=== PATIENT | male | born 1990 | race African-American/Black ===

== ENCOUNTER 2020-11-14 22:28 | Emergency (ER) | payer MEDICAID, OTHER ==
[~2020-11-14] VITALS: Ht 185.4 cm; Wt 100.0 kg
[2020-11-14 22:41] VITALS: BP 177/60
[2020-11-15] MEDS ORDERED: MIDAZOLAM HCL 5 MG/ML VIAL IM ONE ×2 (00:15)
[2020-11-15 14:47] LABS: GLUCOSE,POINT OF CARE 86 MG/DL (70-110)
== END 2020-11-15 02:31 | disposition home or self-care (01) ==
LOC: EMS 22:28 → EDUNIT# 22:28 → EMS 11-15 02:31
DX: R45.1 Restlessness and agitation (principal); F16.929 Hallucinogen use, unspecified with intoxication, unspecified
CPT/HCPCS: 82962; 93005; 96372; 99283; J2250